=== PATIENT | male | born 1990 | race Caucasian/White ===

== ENCOUNTER 2019-12-16 20:34 | Emergency (ER) | payer MEDICAID ==
[~2019-12-16] VITALS: Ht 167.6 cm; Wt 86.4 kg
[2019-12-16 20:37] VITALS: BP 141/104
[2019-12-16] MEDS ORDERED: penicillin V potassium 500mg tablet PO ONE (22:20)
[2019-12-16] MEDS ORDERED: HYDROcodone/acetaminophen 5mg/325mg tablet PO ONE (22:20)
[2019-12-16] MEDS ORDERED: PENI500T2 PO (23:25)
== END 2019-12-16 23:58 | disposition home or self-care (01) ==
LOC: ER 20:35
DX: K02.9 Dental caries, unspecified (principal)
CPT/HCPCS: 99283

== ENCOUNTER 2020-01-03 03:34 | Emergency (ER) | payer MEDICAID ==
[~2020-01-03] VITALS: Ht 167.6 cm; Wt 90.9 kg
[~2020-01-03 03:34] MED LIST: PENI500T2 PO
[2020-01-03 03:36] VITALS: BP 141/121
[2020-01-03] MEDS ORDERED: HYDROcodone/acetaminophen 5mg/325mg tablet PO ONE (03:40)
[2020-01-03] MEDS ORDERED: PENI500T2 PO (03:40)
== END 2020-01-03 03:46 | disposition home or self-care (01) ==
LOC: ER 03:34
DX: K02.9 Dental caries, unspecified (principal)
CPT/HCPCS: 99283